=== PATIENT | female | born 1970 | race Caucasian/White ===

== ENCOUNTER 2023-04-23 13:52 | Emergency (ER) | payer SELFPAY ==
[2023-04-23] MEDS ORDERED: Bicillin LA 1.2 MILLION UNITS/2 ML SYRINGE ONE (14:52)
[2023-04-24 13:47] LABS: Syphilis Antibody REACTIVE (Nonreactive); Syphilis Antibody Index 28.76 S/CO (<1.00 Non-Reactive)
== END 2023-04-23 15:15 | disposition home or self-care (01) ==
LOC: ERS 13:52
DX: A53.0 Latent syphilis, unspecified as early or late (principal)
CPT/HCPCS: 36415; 36416; 86593; 86780; 96372; 99283; J0561

== ENCOUNTER 2023-04-30 09:01 | Emergency (ER) | payer SELFPAY ==
[2023-04-30] MEDS ORDERED: Bicillin LA 2.4 MILL.UNITS/4 ML SYRINGE ONE (09:30)
== END 2023-04-30 09:58 | disposition home or self-care (01) ==
LOC: ERS 09:01
DX: A53.9 Syphilis, unspecified (principal)
CPT/HCPCS: 96372; 99283; J0561

== ENCOUNTER 2023-05-07 10:46 | Emergency (ER) | payer SELFPAY ==
[2023-05-07] MEDS ORDERED: Bicillin LA 2.4 MILL.UNITS/4 ML SYRINGE ONE (10:57)
[2023-05-07] MEDS ORDERED: methylPREDNISolone Sod Succ/PF 125 MG/2 ML VIAL ONE (11:26)
[2023-05-07] MEDS ORDERED: Ketorolac Tromethamine 30 MG/ML VIAL ONE (11:26)
[2023-05-07] MEDS ORDERED: diphenhydrAMINE 50 MG/ML VIAL ONE (11:26)
[2023-05-07] MEDS ORDERED: Ondansetron PF 4 MG/2 ML Vial ONE (11:26)
== END 2023-05-07 12:39 | disposition home or self-care (01) ==
LOC: ERS 10:46
DX: A53.9 Syphilis, unspecified (principal); R51.9 Headache, unspecified
CPT/HCPCS: 96372; 96374; 96375; J0561; J1200; J1885; J2405; J2930